=== PATIENT | female | born 1985 | race Caucasian/White ===

== ENCOUNTER → 2016-06-09 | Outpatient (CLI) | payer OTHER ==
[~2016-06-09] MED LIST: CYAN500L4 SC; DOCU-30 PO; IBUP-1222 PO; IRON1TAB37 PO; OXYC-302 PO; PREN1TAB60 PO; PROP50TA3 PO; [UNRECOGNIZED DRUG - CODE] PO
[2016-06-09 09:40] LABS: HEMOGLOBIN 13.2 g/dL (11.7-16.4)
[2016-06-09 09:50] LABS: BLOOD UREA NITROGEN 18 mg/dL (7-18)
[2016-06-09 10:01] LABS: ASPARTATE AMINO TRANSFERASE 16 U/L (15-37)
== END | disposition home or self-care (01) ==
LOC: LAB 09:18
PROVIDERS: ATTEND Internal Medicine Endocrinology, Diabetes & Metabolism
DX: E05.00 Thyrotoxicosis with diffuse goiter without thyrotoxic crisis or storm (principal); J30.9 Allergic rhinitis, unspecified; E05.90 Thyrotoxicosis, unspecified without thyrotoxic crisis or storm; G47.9 Sleep disorder, unspecified
CPT/HCPCS: 36415; 80053; 82310; 82570; 84100; 84105; 84439; 84443; 84481; 85025

== ENCOUNTER → 2017-06-15 | Outpatient (CLI) | payer OTHER ==
[~2017-06-15] MED LIST changes: +DOCU-131 PO; -DOCU-30 PO; +METF500T4 PO
[2017-06-15 08:16] LABS: FREE T4 (FREE THYROXINE) 1.02 ng/dL (0.76-1.46); THYROID STIMULATING HORMONE 1.14 mIU/L (0.358-3.740)
== END ==
LOC: LAB 07:37
PROVIDERS: ATTEND Internal Medicine Endocrinology, Diabetes & Metabolism
DX: E05.00 Thyrotoxicosis with diffuse goiter without thyrotoxic crisis or storm (principal); G47.9 Sleep disorder, unspecified
CPT/HCPCS: 36415; 84439; 84443; 84481

== ENCOUNTER 2017-07-08 04:56 | Inpatient (IN) | payer OTHER ==
[~2017-07-08] VITALS: Ht 172.7 cm; Wt 109.0 kg
[2017-07-08] MEDS ORDERED: OXYTOCIN 30U/ 0.9% NaCL 500ML 500 ML IV PRN (05:04)
[2017-07-08] MEDS ORDERED: OXYTOCIN 30U/ 0.9% NaCL 500ML 500 ML IV ONE (05:04)
[2017-07-08] MEDS ORDERED: NEWBORN KIT ONE (05:10)
[2017-07-08] MEDS: LACTATED RINGERS 1,000 ML IV SCH ×5 (05:26→23:48)
[2017-07-08 05:27] VITALS: BP 128/75
[2017-07-08 05:30] LABS: BASOPHILS # (AUTO) 0.05 x10^3/uL (0-0.1); BASOPHILS % (AUTO) 1 % (0-1); EOSINOPHILS # (AUTO) 0.05 x10^3/uL (0-0.4); EOSINOPHILS % (AUTO) 0 % (1-7); LYMPHOCYTES # (AUTO) 2.75 x10^3/uL (1-3.4); LYMPHOCYTES % (AUTO) 23 % (22-44); MD NO; MEAN CORPUSCULAR HGB CONC 33.7 g/dL (32.4-35.8); MEAN CORPUSCULAR VOLUME 88.8 fL (80-100); MEAN PLATELET VOLUME 10.2 fL (7.4-10.4); MONOCYTES # (AUTO) 0.48 x10^3/uL (0.2-0.8); MONOCYTES % (AUTO) 4 % (2-9); NEUTROPHILS # (AUTO) 8.53 x10^3/uL (1.8-6.8); NEUTROPHILS % (AUTO) 72 % (42-75); PLATELET COUNT 238 x10^3/uL (130-400); RED BLOOD COUNT 4.38 x10^6/uL (3.82-5.3); RED CELL DISTRIBUTION WIDTH 13.7 % (9.6-15.2)
[2017-07-08] MEDS ORDERED: FENTANYL PF 100 MCG/2ML IVPush PRN (05:30)
[2017-07-08] MEDS ORDERED: TERBUTALINE 1 MG/ML, 1ML IVPush PRN (05:30)
[2017-07-08] MEDS ORDERED: FENTANYL PF 100 MCG/2ML IV PRN (05:30)
[2017-07-08] MEDS ORDERED: ONDANSETRON 2MG/ML, 2ML IVPush PRN (05:30)
[2017-07-08] MEDS ORDERED: ALUMINUM/MAG/SIMETHICONE 30 ML UDC PO PRN (05:30)
[2017-07-08] MEDS ORDERED: OXYTOCIN 30U/ 0.9% NaCL 500ML 500 ML ONE ×2 (05:37→20:02)
[2017-07-08] MEDS ORDERED: LIDOCAINE-MPF 1%, 5ML ONE (06:51)
[2017-07-08] MEDS ORDERED: MISOPROSTOL 200 MCG TABLET ONE (06:51)
[2017-07-08] MEDS ORDERED: FENTANYL/BUPIV./NS/PF 250 ML EPIDCONT SCH (16:12)
[2017-07-08] MEDS ORDERED: BUPIVACAINE/PF 0.25% ONE (16:14)
[2017-07-08] MEDS ORDERED: FENTANYL/BUPIV./NS/PF 250 ML EPIDCONT ONE ×2 (16:14→16:15)
[2017-07-08] MEDS ORDERED: NALOXONE 0.4 MG/ML, 1ML IVPush PRN (16:30)
[2017-07-08] MEDS ORDERED: LACTATED RINGERS 1,000 ML IVBOLUS PRN (16:30)
[2017-07-08] MEDS ORDERED: EPHEDRINE 50 MG/ML, 1ML IVPush PRN (16:30)
[2017-07-08] MEDS ORDERED: MEASLES,MUMPS&RUBELLA VACC/PF 0.5 ML SQ PRN (19:00)
[2017-07-08] MEDS ORDERED: ACETAMINOPHEN 325 MG TABLET PO PRN (19:00)
[2017-07-08] MEDS ORDERED: OXYcodone/APAP 5/325MG TABLET PO PRN ×2 (19:00)
[2017-07-08] MEDS ORDERED: MISOPROSTOL 200 MCG TABLET PO PRN (19:00)
[2017-07-08] MEDS ORDERED: RHOGAM FROM BLOOD BANK 1 NOTE EA IM/IV ONE (19:00)
[2017-07-08] MEDS ORDERED: METHYLERGONOVINE 0.2 MG/ML IM PRN (19:00)
[2017-07-08] MEDS ORDERED: DOCUSATE 100 MG CAPSULE PO PRN (19:00)
[2017-07-08] MEDS ORDERED: DIPH,PERTUSS(ACELL),TET VAC/PF NC IM-VACC PRN (19:00)
[2017-07-08] MEDS ORDERED: CARBOPROST TROMETHAMINE 250 MCG/ML, 1ML IM PRN (19:00)
[2017-07-08 21:10] VITALS: BP 115/64
[2017-07-08] MEDS: IBUPROFEN 600 MG TABLET PO PRN (21:32)
[2017-07-08] MEDS: OXYTOCIN 30U/ 0.9% NaCL 500ML 500 ML IV SCH (22:09)
[2017-07-09 00:50] VITALS: BP 112/62
[2017-07-09 03:57] LABS: BASOPHILS # (AUTO) 0.02 x10^3/uL (0-0.1); BASOPHILS % (AUTO) 0 % (0-1); EOSINOPHILS # (AUTO) 0.05 x10^3/uL (0-0.4); EOSINOPHILS % (AUTO) 0 % (1-7); LYMPHOCYTES # (AUTO) 3.09 x10^3/uL (1-3.4); LYMPHOCYTES % (AUTO) 21 % (22-44); MD NO; MEAN CORPUSCULAR HGB CONC 33.8 g/dL (32.4-35.8); MEAN CORPUSCULAR VOLUME 88.9 fL (80-100); MEAN PLATELET VOLUME 10.5 fL (7.4-10.4); MONOCYTES # (AUTO) 0.75 x10^3/uL (0.2-0.8); MONOCYTES % (AUTO) 5 % (2-9); NEUTROPHILS # (AUTO) 10.98 x10^3/uL (1.8-6.8); NEUTROPHILS % (AUTO) 74 % (42-75); PLATELET COUNT 193 x10^3/uL (130-400); RED BLOOD COUNT 3.46 x10^6/uL (3.82-5.3); RED CELL DISTRIBUTION WIDTH 13.7 % (9.6-15.2)
[2017-07-09 04:50] VITALS: BP 110/66
[2017-07-09] MEDS: IBUPROFEN 600 MG TABLET PO PRN ×2 (05:06→16:08)
[2017-07-09] MEDS: OXYTOCIN 30U/ 0.9% NaCL 500ML 500 ML IV SCH ×2 (05:29→14:31)
[2017-07-09] MEDS: LACTATED RINGERS 1,000 ML IV SCH ×2 (08:12→16:12)
[2017-07-09] MEDS ORDERED: PRENATAL VIT/IRON/FA 1 EACH TABLET PO SCH (09:00)
[2017-07-09 13:00] VITALS: BP 103/65
== END 2017-07-09 17:50 | disposition home or self-care (01) | DRG 775 ==
LOC: LDIP 04:56 → 2NW 20:58
PROVIDERS: ADMIT Obstetrics & Gynecology Maternal & Fetal Medicine; ATTEND Obstetrics & Gynecology Maternal & Fetal Medicine
PROC: 10E0XZZ Delivery of Products of Conception, External Approach (ICD-10-PCS; principal; 2017-07-08)
PROC: 3E033VJ Introduction of Other Hormone into Peripheral Vein, Percutaneous Approach (ICD-10-PCS; 2017-07-08)
DX: O24.429 Gestational diabetes mellitus in childbirth, unspecified control (principal); Z37.0 Single live birth; Z3A.39 39 weeks gestation of pregnancy
CPT/HCPCS: 36415; 82962; 85025; 86850; 86900; J2590; J3010; J7120

== ENCOUNTER → 2017-07-22 | Outpatient (CLI) | payer OTHER ==
[2017-07-22 13:25] LABS: ALBUMIN 3.1 g/dL (3.4-5.0); ANION GAP 8 mmol/L (5-15); CALCIUM 8.9 mg/dL (8.5-10.1); CHLORIDE 108 mmol/L (98-107)
[2017-07-22 13:30] LABS: CREATININE,URINE RANDOM 79.7 mg/dL
[2017-07-22 13:34] LABS: ALANINE AMINOTRANSFERASE 36 U/L (12-78); ALKALINE PHOSPHATASE 115 U/L (45-117); BILIRUBIN,TOTAL 0.3 mg/dL (0.2-1.0); CREATININE 0.82 mg/dL (0.55-1.02); FREE T4 (FREE THYROXINE) 0.99 ng/dL (0.76-1.46); THYROID STIMULATING HORMONE 0.282 mIU/L (0.358-3.740); TOTAL PROTEIN 7.3 g/dL (6.4-8.2)
== END ==
LOC: LAB 12:37
PROVIDERS: ATTEND Internal Medicine Endocrinology, Diabetes & Metabolism
DX: E05.00 Thyrotoxicosis with diffuse goiter without thyrotoxic crisis or storm (principal); J30.9 Allergic rhinitis, unspecified; G47.9 Sleep disorder, unspecified
CPT/HCPCS: 36415; 80053; 82310; 82570; 84100; 84105; 84439; 84443; 84481

== ENCOUNTER → 2018-07-28 | Outpatient (CLI) | payer OTHER ==
[~2018-07-28] MED LIST changes: +METF500T17 PO; -METF500T4 PO
[2018-07-28 15:39] LABS: BASOPHILS # (AUTO) 0.02 x10^3/uL (0-0.1); BASOPHILS % (AUTO) 0 % (0-1); EOSINOPHILS # (AUTO) 0.05 x10^3/uL (0-0.4); EOSINOPHILS % (AUTO) 1 % (1-7); LYMPHOCYTES % (AUTO) 25 % (22-44); MD NO; MEAN CORPUSCULAR HEMOGLOBIN 30.3 pg (27.0-34.8); MEAN CORPUSCULAR HGB CONC 33.5 g/dL (32.4-35.8); MEAN CORPUSCULAR VOLUME 90.4 fL (80-100); MEAN PLATELET VOLUME 9.1 fL (7.4-10.4); MONOCYTES # (AUTO) 0.42 x10^3/uL (0.2-0.8); MONOCYTES % (AUTO) 4 % (2-9); NEUTROPHILS # (AUTO) 7.99 x10^3/uL (1.8-6.8); NEUTROPHILS % (AUTO) 71 % (42-75); PLATELET COUNT 270 x10^3/uL (130-400); RED CELL DISTRIBUTION WIDTH 12.5 % (9.6-15.2)
[2018-07-28 15:59] LABS: FREE T4 (FREE THYROXINE) 1.27 ng/dL (0.76-1.46); THYROID STIMULATING HORMONE 0.551 mIU/L (0.358-3.740)
== END | disposition home or self-care (01) ==
LOC: LAB 15:18
PROVIDERS: ATTEND Internal Medicine Endocrinology, Diabetes & Metabolism
DX: E05.90 Thyrotoxicosis, unspecified without thyrotoxic crisis or storm (principal); G47.9 Sleep disorder, unspecified
CPT/HCPCS: 36415; 84439; 84443; 84481; 85025

== ENCOUNTER 2018-10-01 12:04 | Outpatient (CLI) | payer OTHER | END 2018-10-01 23:59 | disposition home or self-care (01) | LOC: LAB 12:04 | PROVIDERS: ATTEND Internal Medicine Endocrinology, Diabetes & Metabolism | DX: E05.00 Thyrotoxicosis with diffuse goiter without thyrotoxic crisis or storm (principal); E05.90 Thyrotoxicosis, unspecified without thyrotoxic crisis or storm; G47.9 Sleep disorder, unspecified; J30.9 Allergic rhinitis, unspecified | CPT/HCPCS: 36415; 84439; 84443; 84481 ==

== ENCOUNTER 2019-01-11 17:04 | Outpatient (CLI) | payer OTHER ==
[~2019-01-11] VITALS: Ht 172.7 cm; Wt 114.5 kg
[2019-01-11] MEDS ORDERED: PROP50TA3 PO (17:33)
[2019-01-11] MEDS ORDERED: METF500T17 PO (17:33)
[2019-01-11] MEDS ORDERED: NPH,100V SQ (17:34)
[2019-01-11 17:36] VITALS: BP 137/76
[2019-01-11 17:59] LABS: MICROSCOPIC AUTO
== END 2019-01-11 18:28 | disposition home or self-care (01) ==
LOC: LDOP 17:04
PROVIDERS: ATTEND Obstetrics & Gynecology Maternal & Fetal Medicine
DX: O26.893 Other specified pregnancy related conditions, third trimester (principal); R10.9 Unspecified abdominal pain; Z3A.38 38 weeks gestation of pregnancy
CPT/HCPCS: 59025; 81001; 87086; 99211; G0463

== ENCOUNTER 2019-01-15 11:06 | Outpatient (CLI) | payer OTHER ==
[~2019-01-15] VITALS: Ht 172.7 cm; Wt 115.0 kg
[~2019-01-15 11:06] MED LIST changes: +NPH,100V SQ
[2019-01-15 12:20] VITALS: BP 123/73
== END 2019-01-15 13:52 | disposition home or self-care (01) ==
LOC: LDOP 11:06
PROVIDERS: ATTEND Obstetrics & Gynecology Maternal & Fetal Medicine
DX: Z34.93 Encounter for supervision of normal pregnancy, unspecified, third trimester (principal); Z3A.38 38 weeks gestation of pregnancy
CPT/HCPCS: 59025; 76815; 99201; G0463

== ENCOUNTER 2019-01-22 03:51 | Inpatient (IN) | payer OTHER ==
[~2019-01-22] VITALS: Ht 172.7 cm; Wt 115.0 kg
[2019-01-22] MEDS ORDERED: OXYTOCIN 30U/ 0.9% NaCL 500ML 500 ML IV ONE (09:29)
[2019-01-22] MEDS ORDERED: FENTANYL/BUPIV./NS/PF 250 ML EPIDCONT SCH ×2 (09:29→20:01)
[2019-01-22] MEDS ORDERED: FENTANYL PF 100 MCG/2ML IV PRN (09:30)
[2019-01-22] MEDS ORDERED: LACTATED RINGERS 1,000 ML IVBOLUS PRN ×2 (09:30→20:30)
[2019-01-22] MEDS ORDERED: EPHEDRINE 50 MG/ML, 1ML IVPush PRN ×2 (09:30→20:30)
[2019-01-22] MEDS ORDERED: FENTANYL PF 100 MCG/2ML IVPush PRN (09:30)
[2019-01-22] MEDS ORDERED: TERBUTALINE 1 MG/ML, 1ML IVPush PRN (09:30)
[2019-01-22] MEDS ORDERED: TERBUTALINE 1 MG/ML, 1ML SQ PRN (09:30)
[2019-01-22] MEDS ORDERED: OXYTOCIN 30U/ 0.9% NaCL 500ML 500 ML IV PRN (09:35)
[2019-01-22] MEDS ORDERED: PLEASE ENTER HEIGHT AND WEIGHT MC SCH (10:00)
[2019-01-22] MEDS: LACTATED RINGERS 1,000 ML IV SCH ×2 (10:01→16:28)
[2019-01-22 10:05] VITALS: BP 124/79
[2019-01-22 10:48] LABS: BASOPHILS # (AUTO) 0.03 x10^3/uL (0-0.1); BASOPHILS % (AUTO) 0 % (0-1); EOSINOPHILS # (AUTO) 0.13 x10^3/uL (0-0.4); EOSINOPHILS % (AUTO) 1 % (1-7); LYMPHOCYTES # (AUTO) 2.19 x10^3/uL (1-3.4); LYMPHOCYTES % (AUTO) 19 % (22-44); MD NO; MEAN CORPUSCULAR HGB CONC 33.6 g/dL (32.4-35.8); MEAN CORPUSCULAR VOLUME 92.2 fL (80-100); MEAN PLATELET VOLUME 10.4 fL (7.4-10.4); MONOCYTES # (AUTO) 0.48 x10^3/uL (0.2-0.8); MONOCYTES % (AUTO) 4 % (2-9); NEUTROPHILS # (AUTO) 9.06 x10^3/uL (1.8-6.8); NEUTROPHILS % (AUTO) 76 % (42-75); PLATELET COUNT 222 x10^3/uL (130-400); RED BLOOD COUNT 4.25 x10^6/uL (3.82-5.3); RED CELL DISTRIBUTION WIDTH 12.9 % (9.6-15.2)
[2019-01-22] MEDS ORDERED: MISOPROSTOL 200 MCG TABLET ONE (11:14)
[2019-01-22] MEDS ORDERED: LIDOCAINE 1%, 20ML ONE (11:14)
[2019-01-22] MEDS ORDERED: NEWBORN KIT ONE (11:14)
[2019-01-22] MEDS ORDERED: OXYTOCIN 30U/ 0.9% NaCL 500ML 500 ML ONE ×2 (11:14→22:53)
[2019-01-22] MEDS ORDERED: BUPIVACAINE 0.25% ONE ×3 (19:37→21:21)
[2019-01-22] MEDS ORDERED: FENTANYL PF 500 MCG, BUPIVACAINE/PF 0.5%, 30ML 62.5 ML in SODIUM CHLORIDE 0.9% 177.5 ML EPIDCONT SCH (20:00)
[2019-01-22] MEDS ORDERED: LACTATED RINGERS 1,000 ML IV SCH (20:01)
[2019-01-22] MEDS ORDERED: FENTANYL PF 100 MCG/2ML ONE (21:04)
[2019-01-22] MEDS ORDERED: LIDOCAINE 2% 100MG/5ML SYRINGE ONE ×2 (21:33)
[2019-01-22] MEDS ORDERED: IBUPROFEN 600 MG TABLET ONE (23:05)
[2019-01-22] MEDS: IBUPROFEN 600 MG TABLET PO PRN (23:08)
[2019-01-22] MEDS ORDERED: ACETAMINOPHEN 325 MG TABLET PO PRN (23:30)
[2019-01-22] MEDS ORDERED: CARBOPROST TROMETHAMINE 250 MCG/ML, 1ML IM PRN (23:30)
[2019-01-22] MEDS ORDERED: MEASLES,MUMPS&RUBELLA VACC/PF 0.5 ML SQ-VACC PRN (23:30)
[2019-01-22] MEDS ORDERED: OXYcodone/APAP 5/325MG TABLET PO PRN ×2 (23:30)
[2019-01-22] MEDS ORDERED: DOCUSATE 100 MG CAPSULE PO PRN (23:30)
[2019-01-22] MEDS ORDERED: METHYLERGONOVINE 0.2 MG/ML IM PRN (23:30)
[2019-01-22] MEDS ORDERED: SIMETHICONE 80 MG CHEW TAB PO PRN (23:30)
[2019-01-22] MEDS ORDERED: MISOPROSTOL 200 MCG TABLET PR PRN (23:30)
[2019-01-22] MEDS ORDERED: DIPH,PERTUSS(ACELL),TET VAC/PF NC IM-VACC PRN (23:30)
[2019-01-22] MEDS ORDERED: RHOGAM FROM BLOOD BANK 1 NOTE EA IM/IV ONE (23:30)
[2019-01-22] MEDS: OXYTOCIN 30U/ 0.9% NaCL 500ML 500 ML IV SCH (23:41)
[2019-01-23] MEDS ORDERED: OXYcodone/APAP 5/325MG TABLET ONE (00:07)
[2019-01-23 01:10] VITALS: BP 113/73
[2019-01-23 04:15] VITALS: BP 112/71
[2019-01-23 07:19] LABS: MEAN CORPUSCULAR HEMOGLOBIN 30.1 pg (27.0-34.8); MEAN CORPUSCULAR HGB CONC 33.3 g/dL (32.4-35.8); MEAN CORPUSCULAR VOLUME 90.3 fL (80-100); PLATELET COUNT 204 x10^3/uL (130-400); RED CELL DISTRIBUTION WIDTH 12.9 % (9.6-15.2)
[2019-01-23 07:31] LABS: BASOPHILS # (AUTO) 0.03 x10^3/uL (0-0.1); BASOPHILS % (AUTO) 0 % (0-1); EOSINOPHILS # (AUTO) 0.04 x10^3/uL (0-0.4); EOSINOPHILS % (AUTO) 0 % (1-7); LYMPHOCYTES # (AUTO) 2.31 x10^3/uL (1-3.4); LYMPHOCYTES % (AUTO) 15 % (22-44); MD SCAN; MONOCYTES # (AUTO) 0.41 x10^3/uL (0.2-0.8); MONOCYTES % (AUTO) 3 % (2-9); NEUTROPHILS # (AUTO) 12.83 x10^3/uL (1.8-6.8); NEUTROPHILS % (AUTO) 82 % (42-75)
[2019-01-23 07:34] VITALS: BP 102/66
[2019-01-23] MEDS: IBUPROFEN 600 MG TABLET PO PRN ×2 (07:56→14:59)
[2019-01-23] MEDS ORDERED: PRENATAL VIT/IRON/FA 1 EACH TABLET PO SCH (09:00)
[2019-01-23] MEDS: OXYTOCIN 30U/ 0.9% NaCL 500ML 500 ML IV SCH ×3 (09:03→20:28)
[2019-01-23 12:30] VITALS: BP 121/79
[2019-01-23 19:45] VITALS: BP 138/86
== END 2019-01-23 23:37 | disposition home or self-care (01) | DRG 807 ==
LOC: LDIP 09:01 → 2NW 01-23 01:08
PROVIDERS: ADMIT Obstetrics & Gynecology Maternal & Fetal Medicine; ATTEND Obstetrics & Gynecology Maternal & Fetal Medicine
PROC: 10E0XZZ Delivery of Products of Conception, External Approach (ICD-10-PCS; principal; 2019-01-22)
PROC: 3E0R3BZ Introduction of Anesthetic Agent into Spinal Canal, Percutaneous Approach (ICD-10-PCS; 2019-01-22)
PROC: 00HU33Z Insertion of Infusion Device into Spinal Canal, Percutaneous Approach (ICD-10-PCS; 2019-01-22)
PROC: 10907ZC Drainage of Amniotic Fluid, Therapeutic from Products of Conception, Via Natural or Artificial Opening (ICD-10-PCS; 2019-01-22)
DX: O24.429 Gestational diabetes mellitus in childbirth, unspecified control (principal); Z37.0 Single live birth; Z3A.39 39 weeks gestation of pregnancy
CPT/HCPCS: 36415; S0020; 82947; 82962; 85025; 86850; 86900; G0378; J3010; J2590; J7050; J7120

== ENCOUNTER → 2019-07-28 | Outpatient (CLI) | payer OTHER ==
[2019-07-28 12:39] LABS: ALBUMIN 3.6 g/dL (3.4-5.0); ANION GAP 5 mmol/L (5-15); CALCIUM 8.5 mg/dL (8.5-10.1); CHLORIDE 105 mmol/L (98-107)
[2019-07-28 12:42] LABS: ALANINE AMINOTRANSFERASE 31 U/L (12-78); ALKALINE PHOSPHATASE 80 U/L (45-117); BILIRUBIN,TOTAL 0.2 mg/dL (0.2-1.0); CREATININE 0.84 mg/dL (0.55-1.02); TOTAL PROTEIN 7.5 g/dL (6.4-8.2)
== END | disposition home or self-care (01) ==
LOC: LAB 12:04
PROVIDERS: ATTEND Internal Medicine Endocrinology, Diabetes & Metabolism
DX: E05.00 Thyrotoxicosis with diffuse goiter without thyrotoxic crisis or storm (principal); J30.9 Allergic rhinitis, unspecified; G47.9 Sleep disorder, unspecified
CPT/HCPCS: 36415; 80053; 82310; 82570; 83036; 84100; 84105

== ENCOUNTER 2019-08-13 07:06 | Outpatient (CLI) | payer OTHER ==
[2019-08-13 07:35] LABS: ANION GAP 7 mmol/L (5-15); CALCIUM 8.7 mg/dL (8.5-10.1); CHLORIDE 106 mmol/L (98-107)
[2019-08-13 07:44] LABS: ALANINE AMINOTRANSFERASE 26 U/L (12-78); ALKALINE PHOSPHATASE 92 U/L (45-117); BILIRUBIN,TOTAL 0.3 mg/dL (0.2-1.0); CREATININE 0.85 mg/dL (0.55-1.02); FREE T4 (FREE THYROXINE) 1.39 ng/dL (0.76-1.46); TOTAL PROTEIN 7.9 g/dL (6.4-8.2)
[2019-08-13 07:45] LABS: POTASSIUM,URINE RANDOM 10 mmol/L; SODIUM,URINE RANDOM 34 mmol/L
== END 2019-08-13 23:59 | disposition home or self-care (01) ==
LOC: LAB 07:06
PROVIDERS: ATTEND Internal Medicine Endocrinology, Diabetes & Metabolism
DX: E05.00 Thyrotoxicosis with diffuse goiter without thyrotoxic crisis or storm (principal); G47.9 Sleep disorder, unspecified; J30.9 Allergic rhinitis, unspecified
CPT/HCPCS: 36415; 80053; 82306; 82310; 82570; 82652; 83970; 84100; 84105; 84133; 84300; 84439; 84443; 84481

== ENCOUNTER 2019-12-26 07:27 | Outpatient (CLI) | payer OTHER | END 2019-12-26 23:59 | disposition home or self-care (01) | LOC: LAB 07:27 | PROVIDERS: ATTEND Obstetrics & Gynecology Maternal & Fetal Medicine | DX: R73.01 Impaired fasting glucose (principal) | CPT/HCPCS: 36415; 83036 ==

== ENCOUNTER → 2020-03-22 | Outpatient (CLI) | payer OTHER ==
[2020-03-22 16:03] LABS: BASOPHILS % (AUTO) 0 % (0-1); EOSINOPHILS % (AUTO) 1 % (1-7); LYMPHOCYTES % (AUTO) 32 % (22-44); MEAN CORPUSCULAR HEMOGLOBIN 29.8 pg (27.0-34.8); MEAN CORPUSCULAR HGB CONC 34.8 g/dL (32.4-35.8); MEAN PLATELET VOLUME 8.9 fL (7.4-10.4); MONOCYTES % (AUTO) 4 % (2-9); NEUTROPHILS % (AUTO) 63 % (42-75); PLATELET COUNT 341 x10^3/uL (130-400); RED BLOOD COUNT 4.84 x10^6/uL (3.82-5.3); RED CELL DISTRIBUTION WIDTH 12.4 % (9.6-15.2)
[2020-03-22 16:09] LABS: MD NO
[2020-03-22 16:11] LABS: ALANINE AMINOTRANSFERASE 30 U/L (12-78); ALBUMIN 4.1 g/dL (3.4-5.0); ANION GAP 6 mmol/L (5-15); CALCIUM 9.4 mg/dL (8.5-10.1); CHLORIDE 107 mmol/L (98-107); CHOLESTEROL, TOTAL 177 mg/dL (140-239); CREATININE 0.87 mg/dL (0.55-1.02)
[2020-03-22 16:12] LABS: MICROSCOPIC AUTO
[2020-03-22 16:14] LABS: ALKALINE PHOSPHATASE 105 U/L (45-117); BILIRUBIN,TOTAL 0.4 mg/dL (0.2-1.0); CHOL/HDL RATIO 4.5; HDL CHOL % 22 % (28-40); HDL CHOLESTEROL (DIRECT) 39 mg/dL (40-60); LDL CHOLESTEROL,CALCULATED 106 mg/dL (54-169); LDL/HDL RATIO 2.7 (0.5-3.0); TOTAL PROTEIN 8.3 g/dL (6.4-8.2); TRIGLYCERIDES 161 mg/dL (50-200); VLDL CHOLESTEROL 32 mg/dL (0-25)
== END | disposition home or self-care (01) ==
LOC: RAD 15:14
PROVIDERS: ATTEND Family Medicine
DX: Z00.00 Encounter for general adult medical examination without abnormal findings (principal); M15.9 Polyosteoarthritis, unspecified
CPT/HCPCS: 36415; 80053; 80061; 81001; 83036; 85025

== ENCOUNTER 2020-04-01 15:13 | Outpatient (CLI) | payer OTHER ==
[~2020-04-01 15:13] MED LIST changes: -OXYC-302 PO; +OXYC1TAB14 PO
[2020-04-01] MEDS ORDERED: CETI10TA76 PO (15:57)
[2020-04-01] MEDS ORDERED: FLUT9.9S NAS (15:57)
[2020-04-01] MEDS ORDERED: VITAMIN B12 INJ (15:57)
[2020-04-01 16:35] LABS: BASOPHILS % (AUTO) 0 % (0-1); EOSINOPHILS % (AUTO) 1 % (1-7); LYMPHOCYTES % (AUTO) 30 % (22-44); MEAN CORPUSCULAR HEMOGLOBIN 29.6 pg (27.0-34.8); MEAN PLATELET VOLUME 9.3 fL (7.4-10.4); MONOCYTES % (AUTO) 4 % (2-9); NEUTROPHILS % (AUTO) 65 % (42-75); PLATELET COUNT 328 x10^3/uL (130-400); RED BLOOD COUNT 4.81 x10^6/uL (3.82-5.3); RED CELL DISTRIBUTION WIDTH 12.1 % (9.6-15.2)
[2020-04-01 16:37] LABS: ANION GAP 6 mmol/L (5-15); CHLORIDE 105 mmol/L (98-107); CREATININE 0.92 mg/dL (0.55-1.02)
[2020-04-01 16:42] LABS: MD NO
== END 2020-04-01 23:59 | disposition home or self-care (01) ==
LOC: STAR 15:13
PROVIDERS: ATTEND Obstetrics & Gynecology Maternal & Fetal Medicine
DX: Z01.812 Encounter for preprocedural laboratory examination (principal); Z20.822 Contact with and (suspected) exposure to COVID-19
CPT/HCPCS: 80048; 84702; 85025; 87635

== ENCOUNTER 2020-04-07 14:28 | Day surgery (SDC) | payer OTHER ==
[~2020-04-07] VITALS: Ht 172.7 cm; Wt 116.6 kg
[~2020-04-07 14:28] MED LIST changes: +CETI10TA76 PO; +FLUT9.9S NAS; +VITAMIN B12 INJ
[2020-04-07] MEDS ORDERED: CHLORHEXIDINE 15 ML UDC MM ONE (14:39)
[2020-04-07 14:44] VITALS: BP 126/82
[2020-04-07] MEDS ORDERED: LACTATED RINGERS 1,000 ML IV SCH (15:00)
[2020-04-07 15:36] LABS: HCG UR SG 1.023 (1.003-1.030)
[2020-04-07] MEDS ORDERED: MIDAZOLAM 1 MG/ML, 2ML ONE (16:52)
[2020-04-07] MEDS ORDERED: FENTANYL PF 250 MCG/5ML ONE (16:52)
[2020-04-07] MEDS ORDERED: MISOPROSTOL 200 MCG TABLET ONE (17:03)
[2020-04-07] MEDS ORDERED: OXYTOCIN 10 UNITS/ML, 1ML ONE (17:03)
[2020-04-07] MEDS ORDERED: VASOPRESSIN 20 UNIT/ML, 1ML ONE ×2 (17:04→17:05)
[2020-04-07] MEDS ORDERED: METHYLERGONOVINE 0.2 MG/ML IM ONE (17:04)
[2020-04-07] MEDS ORDERED: SILVER NITRATE STICK TP ONE (17:04)
[2020-04-07] MEDS ORDERED: PROPOFOL 50 ML ONE ×2 (17:21→17:43)
[2020-04-07] MEDS ORDERED: METOCLOPRAMIDE 5 MG/ML, 2ML ONE (17:23)
[2020-04-07] MEDS ORDERED: LIDOCAINE-MPF 2% ,5ML ONE (17:23)
[2020-04-07] MEDS ORDERED: DEXAMETHASONE 4 MG/ML, 5ML ONE (17:23)
[2020-04-07] MEDS ORDERED: LIDOCAINE GEL 2%, 5ML ONE (17:23)
[2020-04-07] MEDS ORDERED: PROPOFOL 10 MG/ML, 20ML ONE (17:23)
[2020-04-07] MEDS ORDERED: ONDANSETRON 2MG/ML, 2ML ONE (17:23)
[2020-04-07] MEDS ORDERED: KETOROLAC 30 MG/1 ML ONE (17:23)
[2020-04-07] MEDS ORDERED: CEFAZOLIN 1,000 MG ONE (17:23)
[2020-04-07] MEDS ORDERED: METHOCARBAMOL 1,000 MG in DEXTROSE 5% 100 ML IV PRN (18:00)
[2020-04-07] MEDS ORDERED: ONDANSETRON 2MG/ML, 2ML IVPush PRN (18:00)
[2020-04-07] MEDS ORDERED: EPHEDRINE 50 MG/ML, 1ML IVPush PRN (18:00)
[2020-04-07] MEDS ORDERED: LABETALOL 5MG/ML, 20ML IV PRN (18:00)
[2020-04-07] MEDS ORDERED: HYDROmorphone 1 MG/ML, 1ML INJ IVPush PRN (18:00)
[2020-04-07] MEDS ORDERED: PROMETHAZINE 25 MG/ML, 1ML IVPush PRN (18:00)
[2020-04-07] MEDS ORDERED: OXYcodone 5 MG/5 ML ORAL.SOL UDC PO PRN (18:00)
[2020-04-07] MEDS ORDERED: hydrALAzine 20 MG/ML, 1ML IV PRN (18:00)
[2020-04-07] MEDS ORDERED: ACETAMINOPHEN 325 MG TABLET PO PRN (18:00)
[2020-04-07] MEDS ORDERED: FENTANYL PF 100 MCG/2ML IV PRN (18:00)
[2020-04-07] MEDS ORDERED: LORazepam 2 MG/ML, 1ML IVPush PRN (18:00)
[2020-04-07] MEDS ORDERED: MEPERIDINE/PF 25MG/0.5ML IVPush PRN (18:00)
== END 2020-04-07 19:10 | disposition home or self-care (01) ==
LOC: OR 14:28
PROVIDERS: ATTEND Obstetrics & Gynecology Maternal & Fetal Medicine
DX: O03.4 Incomplete spontaneous abortion without complication (principal); F17.210 Nicotine dependence, cigarettes, uncomplicated; Z88.1 Allergy status to other antibiotic agents; Z91.013 Allergy to seafood; Z88.8 Allergy status to other drugs, medicaments and biological substances; Z98.890 Other specified postprocedural states; Z79.899 Other long term (current) drug therapy
CPT/HCPCS: 59812; 81025; 88305; J0690; J1100; J1885; J2250; J2405; J2590; J2704; J2765; J3010; J7120; J2210

== ENCOUNTER → 2020-09-14 | Outpatient (CLI) | payer OTHER ==
[2020-09-14 08:35] LABS: BASOPHILS % (AUTO) 1 % (0-1); EOSINOPHILS % (AUTO) 1 % (1-7); LYMPHOCYTES % (AUTO) 28 % (22-44); MEAN CORPUSCULAR HEMOGLOBIN 29.9 pg (27.0-34.8); MEAN CORPUSCULAR HGB CONC 34.1 g/dL (32.4-35.8); MEAN PLATELET VOLUME 9.4 fL (7.4-10.4); MONOCYTES % (AUTO) 4 % (2-9); NEUTROPHILS % (AUTO) 66 % (42-75); PLATELET COUNT 276 x10^3/uL (130-400); RED BLOOD COUNT 4.43 x10^6/uL (3.82-5.3); RED CELL DISTRIBUTION WIDTH 12.5 % (9.6-15.2)
[2020-09-14 08:49] LABS: TOTAL PROTEIN,URINE RANDOM < 5 mg/dL (0-12)
== END | disposition home or self-care (01) ==
LOC: LAB 07:43
PROVIDERS: ATTEND Nurse Practitioner Women's Health
DX: Z34.01 Encounter for supervision of normal first pregnancy, first trimester (principal)
CPT/HCPCS: 36415; 82570; 82950; 84156; 85025; 86592; 86762; 86850; 86900; 87086; 87340; 87806; G0475

== ENCOUNTER → 2020-09-14 | Outpatient (CLI) | payer OTHER ==
[2020-09-14 08:40] LABS: ALANINE AMINOTRANSFERASE 37 U/L (12-78); ALBUMIN 3.8 g/dL (3.4-5.0); ANION GAP 7 mmol/L (5-15); CHLORIDE 103 mmol/L (98-107); CREATININE 0.64 mg/dL (0.55-1.02)
[2020-09-14 08:49] LABS: ALKALINE PHOSPHATASE 73 U/L (45-117); BILIRUBIN,TOTAL 0.4 mg/dL (0.2-1.0); FREE T4 (FREE THYROXINE) 1.22 ng/dL (0.76-1.46); TOTAL PROTEIN 7.5 g/dL (6.4-8.2)
== END | disposition home or self-care (01) ==
LOC: LAB 07:45
PROVIDERS: ATTEND Transplant Surgery
DX: Z01.84 Encounter for antibody response examination (principal); J30.9 Allergic rhinitis, unspecified; E05.00 Thyrotoxicosis with diffuse goiter without thyrotoxic crisis or storm; G47.9 Sleep disorder, unspecified; E11.9 Type 2 diabetes mellitus without complications; R82.998 Other abnormal findings in urine; E05.90 Thyrotoxicosis, unspecified without thyrotoxic crisis or storm
CPT/HCPCS: 36415; 80053; 82310; 82570; 83525; 83970; 84100; 84105; 84439; 84443; 84481

== ENCOUNTER 2020-11-04 16:17 | Outpatient (CLI) | payer OTHER ==
[~2020-11-04 16:17] MED LIST changes: +OXYC1TAB12 PO; -OXYC1TAB14 PO
[2020-11-04 16:56] LABS: FREE T4 (FREE THYROXINE) 1.12 ng/dL (0.76-1.46)
== END 2020-11-04 23:59 | disposition home or self-care (01) ==
LOC: LAB 16:17
PROVIDERS: ATTEND Internal Medicine Endocrinology, Diabetes & Metabolism
DX: E05.00 Thyrotoxicosis with diffuse goiter without thyrotoxic crisis or storm (principal); E05.90 Thyrotoxicosis, unspecified without thyrotoxic crisis or storm; J30.9 Allergic rhinitis, unspecified; E11.9 Type 2 diabetes mellitus without complications
CPT/HCPCS: 36415; 84439; 84443; 84445; 84481